=== PATIENT | male | born 1965 ===

== ENCOUNTER 2020-07-11 07:45 | Inpatient (IN) | payer OTHER ==
[~2020-07-11] VITALS: Ht 177.8 cm; Wt 115.7 kg
[2020-07-11] MEDS ORDERED: ZYRTEC10 M3 PO (10:05)
[2020-07-11] MEDS ORDERED: SINGULAIR 10MG10 MG PO (10:05)
[2020-07-11] MEDS ORDERED: VITAMIN C100 MG PO (10:06)
[2020-07-18] MEDS ORDERED: SYMBICORT 16010.2 GM (10:31)
[2020-07-18] MEDS ORDERED: SPIRIVA RESPIMAT4 G1 (10:32)
[2020-07-18] MEDS ORDERED: PROAIR HFA8.5 GM (10:32)
[2020-07-20] MEDS ORDERED: PERCOCET 5-3251 EACH PO (17:14)
[2020-07-20] MEDS ORDERED: DUI500 PO (17:14)
[2020-07-20] MEDS ORDERED: ELIQUIS2.5 MG PO (17:14)
== END 2020-07-20 19:40 | DRG 470 ==
LOC: SURH 07-18 06:00 → O/R 07-18 06:00 → SURH 07-18 07:45
PROVIDERS: ADMIT Orthopaedic Surgery; ATTEND Orthopaedic Surgery
PROC: 0SRD0J9 Replacement of Left Knee Joint with Synthetic Substitute, Cemented, Open Approach (ICD-10-PCS; principal; 2020-07-18 10:30)
DX: M17.12 Unilateral primary osteoarthritis, left knee (principal); D62 Acute posthemorrhagic anemia; G47.33 Obstructive sleep apnea (adult) (pediatric); E78.00 Pure hypercholesterolemia, unspecified

== ENCOUNTER 2022-03-07 08:00 | Inpatient (IN) | payer OTHER ==
[~2022-03-07] VITALS: Ht 175.3 cm; Wt 113.4 kg
[~2022-03-07 08:00] MED LIST: DUI500 PO; ELIQUIS2.5 MG PO; PERCOCET 5-3251 EACH PO; PROAIR HFA8.5 GM; SINGULAIR 10MG10 MG PO; SPIRIVA RESPIMAT4 G1; SYMBICORT 16010.2 GM; VITAMIN C100 MG PO; ZYRTEC10 M3 PO
[2022-03-07] MEDS ORDERED: LIPITOR20 MG PO (09:29)
[2022-03-12] MEDS ORDERED: TESTOSTERO200 MG/1 M (08:08)
[2022-03-12] MEDS ORDERED: BUSPIRONE HCL5 MG (08:08)
[2022-03-12] MEDS ORDERED: CABERGOLINE0.5 MG (08:08)
[2022-03-12] MEDS ORDERED: ESCITALOPRAM OX10 MG (08:08)
[2022-03-14] MEDS ORDERED: ELIQUIS2.5 MG PO (17:09)
[2022-03-14] MEDS ORDERED: DUI500 PO (17:09)
[2022-03-14] MEDS ORDERED: PERCOCET 5-3251 EACH PO (17:09)
== END 2022-03-14 19:16 | disposition home or self-care (01) | DRG 470 ==
LOC: SURG 03-12 05:30 → O/R 03-12 05:30 → SURH 03-12 08:00 → SURG 03-12 11:38
PROVIDERS: ADMIT Orthopaedic Surgery; ATTEND Orthopaedic Surgery
PROC: 0SRC0J9 Replacement of Right Knee Joint with Synthetic Substitute, Cemented, Open Approach (ICD-10-PCS; principal; 2022-03-12 10:30)
DX: M17.11 Unilateral primary osteoarthritis, right knee (principal); D62 Acute posthemorrhagic anemia; M22.11 Recurrent subluxation of patella, right knee; E66.8 Other obesity; G47.33 Obstructive sleep apnea (adult) (pediatric); Z20.822 Contact with and (suspected) exposure to COVID-19